=== PATIENT | female | born 2000 | race Caucasian/White ===

== ENCOUNTER 2021-05-13 16:38 | Emergency (ER) | payer MEDICAID ==
[~2021-05-13] VITALS: Ht 165.1 cm; Wt 118.0 kg
--- NOTE | 2021-05-13 17:11 | PHYS DOC ---
Past Medical History Past Surgical History: No Surgical History General Adult EDM: Chief Complaint: , pelvic pain HPI: HPI: Patient is a 20 year old female who present to ER for evaluation of lower pelvic pain, described as cramping in nature. Patient says she is , her last menstrual period was on 03/09/2021. This is her second , she had a miscarriage before. Patient denies any vaginal bleeding. Patient did not have any care yet. Patient denies any fever, no nausea vomiting Review of Systems: Review of Systems: Constitutional: Denies fever or chills. [] Eyes: Denies change in visual acuity. [] HENT: Denies nasal congestion or sore throat. [] Respiratory: Denies cough or shortness of breath. [] Cardiovascular: Denies chest pain or edema. [] GI: Denies abdominal pain, nausea, vomiting, bloody stools or diarrhea. [] : Denies dysuria. Positive for pelvic pain, no vaginal bleeding or discharge Musculoskeletal: Denies back pain or joint pain. [] Integument: Denies rash. [] Neurologic: Denies headache, focal weakness or sensory changes. [] Endocrine: Denies polyuria or polydipsia. [] Lymphatic: Denies swollen glands. [] Psychiatric: Denies depression or anxiety. [] Heart Score: C/O Chest Pain: N/A Risk Factors: Risk Factors: DM, Current or recent (<one month) smoker, HTN, HLP, family history of CAD, obesity. Risk Scores: Score 0 - 3: 2.5% MACE over next 6 weeks - Discharge Home Score 4 - 6: 20.3% MACE over next 6 weeks - Admit for Clinical Observation Score 7 - 10: 72.7% MACE over next 6 weeks - Early Invasive Strategies Physical Exam: PE: Constitutional: Well developed, well nourished, no acute distress, non-toxic appearance. [] HENT: Normocephalic, atraumatic, bilateral external ears normal, oropharynx moist, no oral exudates, nose normal. [] Eyes: PERRLA, EOMI, conjunctiva normal, no discharge. [] Neck: Normal range of motion, no tenderness, supple, no stridor. [] Cardiovascular:Heart rate regular rhythm, no murmur [] Lungs & Thorax: Bilateral breath sounds clear to auscultation [] Abdomen: Bowel sounds normal, soft, suprapubic tender to palpate, no masses, no pulsatile masses. [] Skin: Warm, dry, no erythema, no rash. [] Back: No tenderness, no CVA tenderness. [] Extremities: No tenderness, no cyanosis, no clubbing, ROM intact, no edema. [] Neurologic: Alert and oriented X 3, normal motor function, normal sensory function, no focal deficits noted. [] Psychologic: Affect normal, judgement normal, mood normal. [] Current Patient Data: Labs: Laboratory Tests Test 05/13/21 16:16 05/13/21 16:51 05/13/21 17:50 Urine Collection Type Unknown Urine Color Yellow Urine Clarity Turbid Urine pH 6.0 Urine Specific [place] >=1.030 Urine Protein Negative mg/dL Urine Glucose (UA) Negative mg/dL Urine Ketones (Stick) Negative mg/dL Urine Blood Negative Urine Nitrite Negative Urine Bilirubin Negative Urine Urobilinogen Dipstick 1.0 mg/dL Urine Leukocyte Esterase Trace Urine RBC 0 /HPF Urine WBC 1-4 /HPF Urine Squamous Epithelial Cells Few /LPF Urine Amorphous Sediment Present /HPF Urine Bacteria Few /HPF Urine Mucus Slight /LPF Bedside Urine HCG, Qualitative Hcg positive White Blood Count 9.1 x10^3/uL Red Blood Count 4.12 x10^6/uL Hemoglobin 12.4 g/dL Hematocrit 35.3 % Mean Corpuscular Volume 86 fL Mean Corpuscular Hemoglobin 30 pg Mean Corpuscular Hemoglobin Concent 35 g/dL Red Cell Distribution Width 13.5 % Platelet Count 320 x10^3/uL Neutrophils (%) (Auto) 72 % Lymphocytes (%) (Auto) 18 % Monocytes (%) (Auto) 9 % Eosinophils (%) (Auto) 1 % Basophils (%) (Auto) 1 % Neutrophils # (Auto) 6.6 x10^3/uL Lymphocytes # (Auto) 1.6 x10^3/uL Monocytes # (Auto) 0.8 x10^3/uL Eosinophils # (Auto) 0.1 x10^3/uL Basophils # (Auto) 0.1 x10^3/uL Sodium Level 137 mmol/L Potassium Level 3.7 mmol/L Chloride Level 103 mmol/L Carbon Dioxide Level 23 mmol/L Anion Gap 11 Blood Urea Nitrogen 8 mg/dL Creatinine 0.8 mg/dL Estimated GFR (Cockcroft-Gault) 91.4 BUN/Creatinine Ratio 10 Glucose Level 90 mg/dL Calcium Level 8.5 mg/dL Total Bilirubin 0.2 mg/dL Aspartate Amino Transf (AST/SGOT) 12 U/L Alanine Aminotransferase (ALT/SGPT) 14 U/L Alkaline Phosphatase 72 U/L Total Protein 6.7 g/dL Albumin 3.0 g/dL Albumin/Globulin Ratio 0.8 Laboratory Tests Test 05/13/21 16:51 POC Urine HCG, Qualitative Hcg positive (Negative) Vital Signs: Vital Signs Date Time Temp Pulse Resp B/P (MAP) Pulse Ox O2 Delivery O2 Flow Rate FiO2 05/13/21 16:50 97.7 97 14 157/92 (113) 100 Room Air 97.7 EKG: EKG: [] Radiology/Procedures: Radiology/Procedures: [facility] [address] [place] [address] IMAGING REPORT Signed PATIENT: LUKAS LUCAS NACCOUNT: [id number] : 2000 LOCATION: ER AGE: 20 SEX: F EXAM STATUS: REG ER ORD. PHYSICIAN: VIVIANA AYERS DO REASON: pelvic pain, , LMP 03/09/21 PROCEDURE: OB TRANSVAG INDICATION: Reason: pelvic pain, , LMP 03/09/21 / Spl. Instructions: / History: COMPARISON: CT from March 13, 2021 TECHNIQUE: Grayscale and color ultrasound images uterus and adnexa. Transvagina l images are obtained. FINDINGS: Uterus is 110 x 73 x 70 mm. Left ovaries 31 x 30 x 24 mm. Intrauterine gestational sac is identified with a pole with a heart beat of 178. Right ovary is obscured. Too early in to adequately assess placenta. Amniotic fluid unremarkable crown-rump length is 23 mm. Cyst at the left ovary measuring 24 x 18 mm with vascular flow seen to the ovary. IMPRESSION: * Intrauterine is identified with estimated gestational age of 9 weeks and 0 days with positive heartbeat. Recommend routine anomaly screening at 18-22 weeks. * Left ovarian cyst Electronically signed by: Hamzah Baltazar MD (05/13/2021 6:16 PM) [id number] DICTATED and SIGNED BY: HAMZAH BALTAZAR MD DATE: 05/13/21 [id number] 0 Course & Med Decision Making: Course & Med Decision Making Patient isPertinent Labs and Imaging studies reviewed. (See chart for details) Patient is a 20-year-old female who present to ER for evaluation lower abdominal cramping. Patient is , pelvic ultrasound show 9-week IUP, she is in no acute distress, she had no fever, no nausea vomiting. Patient had no vaginal bleeding. It is suspected that patient had pain due to round ligament. Dragon Disclaimer: Dragon Disclaimer: This electronic medical record was generated, in whole or in part, using a voice recognition dictation system. Departure Departure Impression: Primary Impression: Abdominal pain during in first trimester Disposition: 01 HOME / SELF CARE / HOMELESS Condition: STABLE Referrals: VICTOR M MACIAS MD Follow up with this GAME TESTER DOCTOR FOR OUTPATIENT CARE. Patient Instructions: Abdominal Pain During Additional Instructions: Thank you for visiting our Emergency Department. We appreciate you trusting us with your care. If any additional problems come up don't hesitate to return to visit us. Please follow up with your primary care provider so they can plan additional care if needed and know about the problem that you had. If symptoms worsen come back to the Emergency Department. Any concerning symptoms that start such as chest pain, shortness of air, weakness or numbness on one side of the body, running high fevers or any other concerning symptoms return to the ER. VIVIANA AYERS DO May 13, 2021 17:11
[2021-05-13 17:18] LABS: BILIRUBIN,URINE NEGATIVE (NEG); CLARITY,URINE TURBID; COLOR,URINE YELLOW; NITRITE,URINE NEGATIVE (NEG); PROTEIN,URINE NEGATIVE (NEG-TRACE)
[2021-05-13 17:33] LABS: AMORPHOUS SEDIMENT,UR PRESENT /HPF; BACTERIA,URINE FEW /HPF (0-FEW)
[2021-05-13 17:35] LABS: RBC,URINE 0 /HPF (0-2)
[2021-05-13 17:59] LABS: BASO # 0.1 x10^3/uL (0.0-0.2); BASO % 1 % (0-3); EOS # 0.1 x10^3/uL (0.0-0.7); EOS % 1 % (0-3); HEMATOCRIT 35.3 % (36.0-47.0); HEMOGLOBIN 12.4 g/dL (12.0-15.5); LYMPH # 1.6 x10^3/uL (1.0-4.8); LYMPH % 18 % (24-48); MEAN CORPUSCULAR HEMOGLOBIN 30 pg (25-35); MEAN CORPUSCULAR HGB CONC 35 g/dL (31-37); MEAN CORPUSCULAR VOLUME 86 fL (79-100); MONO # 0.8 x10^3/uL (0.0-1.1); MONO % 9 % (0-9); NEUT # 6.6 x10^3/uL (1.8-7.7); NEUT % 72 % (31-73); PLATELET COUNT 320 x10^3/uL (140-400); RED BLOOD COUNT 4.12 x10^6/uL (3.50-5.40); RED CELL DISTRIBUTION WIDTH 13.5 % (11.5-14.5); WHITE BLOOD COUNT 9.1 x10^3/uL (4.0-11.0)
[2021-05-13 18:06] LABS: CALCIUM 8.5 mg/dL (8.5-10.1); CREATININE 0.8 mg/dL (0.6-1.0); GFR 91.4; POTASSIUM 3.7 mmol/L (3.5-5.1)
[2021-05-13 18:12] LABS: ALBUMIN/GLOBULIN RATIO 0.8 (1.0-1.7); TOTAL BILIRUBIN 0.2 mg/dL (0.2-1.0); TOTAL PROTEIN 6.7 g/dL (6.4-8.2)
--- NOTE | 2021-05-13 18:18 | RAD ---
INDICATION: Reason: pelvic pain, , LMP 03/09/21 / . Instructions: / History: COMPARISON: CT from March 13, 2021 TECHNIQUE: Grayscale and color ultrasound images uterus and adnexa. Transvaginal images are obtained . FINDINGS: Uterus is 110 x 73 x 70 mm. Left ovaries 31 x 30 x 24 mm. Intrauterine gestational sac is identified with a pole with a heart beat of 178. Right ovary is obscured. Too early in to adequately assess placenta. Amniotic fluid unremarkable crown-rump length is 23 mm. Cyst at the left ovary measuring 24 x 18 mm with vascular flow seen to the ovary. IMPRESSION: * Intrauterine is identified with estimated gestational age of 9 weeks and 0 days with po sitive heartbeat. Recommend routine anomaly screening at 18-22 weeks. * Left ovarian cyst Electronically signed by: Wayne Chauahn MD (05/13/2021 6:16 PM) [id number]
[2021-05-13 18:28] VITALS: BP 134/75
== END 2021-05-13 18:28 | disposition home or self-care (01) ==
LOC: ER 16:38
DX: O26.891 Other specified pregnancy related conditions, first trimester (principal); R10.2 Pelvic and perineal pain; Z3A.09 9 weeks gestation of pregnancy
CPT/HCPCS: 36415; 76817; 80053; 81001; 81025; 84702; 85025; 87086; 99284

== ENCOUNTER 2021-05-29 09:00 | Emergency (ER) | payer MEDICAID ==
[~2021-05-29] VITALS: Ht 165.1 cm; Wt 118.8 kg
--- NOTE | 2021-05-29 10:38 | PHYS DOC ---
Past Medical History Past Surgical History: No Surgical History (DUSTY OHARA APRN) Smoking Status: Former Smoker Alcohol Use: None (DUSTY OHARA APRN) General Adult EDM: Chief Complaint: VAGINAL BLEEDING HPI: HPI: Patient is a 20-year-old female that presents today after having some lower abdominal cramping with scant amount of vaginal bleeding. Patient states she woke up this morning and had some blood on her underwear and then wiped and had some more blood on the tissue. She has not had any vaginal bleeding since that time. Patient denies sexual intercourse in the last 24 hours. Patient does state that she has had some vaginal discharge since this morning as well. Patient states this is her third she has had 1 live and 1 miscarriage. Patient has not had any care she is following up with a puzzle assembler in [facility]. Patient was previously here on May 13, 2021 had a pelvic ultrasound that showed 9-week intrauterine at that time. Patient does state that she is O-. (DUSTY OHARA APRN) Review of Systems: Review of Systems: Constitutional: Denies fever or chills. [] Eyes: Denies change in visual acuity. [] HENT: Denies nasal congestion or sore throat. [] Respiratory: Denies cough or shortness of breath. [] Cardiovascular: Denies chest pain or edema. [] GI: lower abdominal cramps, vaginal discharge and bleeding : Denies dysuria. [] Musculoskeletal: Denies back pain or joint pain. [] Integument: Denies rash. [] Neurologic: Denies headache, focal weakness or sensory changes. [] Endocrine: Denies polyuria or polydipsia. [] Lymphatic: Denies swollen glands. [] Psychiatric: Denies depression or anxiety. [] (DUSTY OHARA DISPLAY MECHANIC) Heart Score: C/O Chest Pain: N/A Risk Factors: Risk Factors: DM, Current or recent (<one month) smoker, HTN, HLP, family history of CAD, obesity. Risk Scores: Score 0 - 3: 2.5% MACE over next 6 weeks - Discharge Home Score 4 - 6: 20.3% MACE over next 6 weeks - Admit for Clinical Observation Score 7 - 10: 72.7% MACE over next 6 weeks - Early Invasive Strategies (DUSTY OHARA APRN) Current Medications: vitamins (DUSTY OHARA APRN) Allergies: Allergies: Allergies Coded Allergies Type Severity Reaction Last Updated Verified No Known Drug Allergies 05/29/21 No (DUSTY OHARA APRN) Physical Exam: PE: Constitutional: Well developed, well nourished, no acute distress, non-toxic appearance. [] HENT: Normocephalic, atraumatic, bilateral external ears normal, oropharynx moist, no oral exudates, nose normal. [] Eyes: PERRLA, EOMI, conjunctiva normal, no discharge. [] Neck: Normal range of motion, no tenderness, supple, no stridor. [] Cardiovascular:Heart rate regular rhythm, no murmur [] Lungs & Thorax: Bilateral breath sounds clear to auscultation [] Abdomen: abdomen soft and no tenderness with palpation. Skin: Warm, dry, no erythema, no rash. [] Back: No tenderness, no CVA tenderness. [] Extremities: No tenderness, no cyanosis, no clubbing, ROM intact, no edema. [] Neurologic: Alert and oriented X 3, normal motor function, normal sensory function, no focal deficits noted. [] Psychologic: Affect normal, judgement normal, mood normal. [] (DUSTY OHARA APRN) Current Patient Data: Labs: Laboratory Tests Test 05/29/21 10:31 05/29/21 10:32 Bedside Urine HCG, Qualitative Hcg positive Urine Collection Type Unknown Urine Color Yellow Urine Clarity Cloudy Urine pH 8.0 Urine Specific [place] 1.020 Urine Protein Negative mg/dL Urine Glucose (UA) Negative mg/dL Urine Ketones (Stick) Negative mg/dL Urine Blood Negative Urine Nitrite Negative Urine Bilirubin Negative Urine Urobilinogen Dipstick 1.0 mg/dL Urine Leukocyte Esterase Large Urine RBC Field obscured /HPF Urine WBC Tntc /HPF Urine Squamous Epithelial Cells Many /LPF Urine Amorphous Sediment Present /HPF Urine Bacteria Moderate /HPF Vital Signs: Vital Signs Date Time Temp Pulse Resp B/P (MAP) Pulse Ox O2 Delivery O2 Flow Rate FiO2 05/29/21 10:15 98.2 83 18 144/79 (100) 100 Room Air 98.2 (DUSTY OHARA APRN) EKG: EKG: [] (DUSTY OHARA APRN) Radiology/Procedures: Radiology/Procedures: Pelvic Exam: External exam is normal and without rash, No CMT, OS is closed, vaginal discharge noted, uterus NTTP, No adnexal masses or tenderness noted[] REASON: with vaginal bleeding PROCEDURE: OB TRANSVAG US OB TRANSVAGINAL DATE: 05/29/2021 10:35 AM INDICATION: with vaginal bleeding. LMP 03/09/2021. COMPARISON: None. TECHNIQUE: Transabdominal ultrasonography of the pelvis was performed. Color Doppler and duplex were utilized as appropriate. FINDINGS: The uterus measures 11 x 10 x 8.3 cm. There is living intrauterine gestation with heart rate of 165 beats per minute. There is small yolk sac present. Gestational sac is normal in morphology. No perigestational fluid. [place]-rump length measurement of 4.84 cm corresponds with estimated ultrasound gestational age of 11 weeks and 4 days. EDC by ultrasound 12/14/2021. There is no free pelvic fluid. The right ovary is not visualized The left ovary measures 3.1 x 2.9 x 2.4 cm. No evidence of left ovarian torsion. There is normal blood flow to the left ovary by color Doppler with arterial and venous waveforms detected. IMPRESSION: 1. Single living intrauterine gestation. [place]-rump length corresponds with estimated ultrasound gestational age of 11 weeks and 4 days. 2. Normal left ovary. Right ovary not visualized. Electronically signed by: Og Kinsey MD (05/29/2021 12:05 PM) [facility] (DUSTY OHARA APRN) Course & Med Decision Making: Course & Med Decision Making Pertinent Labs and Imaging studies reviewed. (See chart for details) 1215 patient reexamined no vaginal bleeding noted, patient does report she was at a clinic in the area 3 days ago and diagnosed with STI and has not gotten her prescription filled patient encouraged at this time to get the prescription filled and be treated for STI. Lab test and ultrasound results reviewed with patient patient encouraged to follow-up with her puzzle assembler and/or Dr. Montes this week by phone for follow-up. Due to patient's Rh- status patient was given a dose of RhoGam here in the department. patient agreed with plan and understands the need for her antibiotic for her STI. Patient verbalized understanding to return for increased vaginal bleeding or passing of tissue. [] (DUSTY OHARA APRN) Course & Med Decision Making I have reviewed the documentation for this chart. The patient has evidence of a UTI on UA, but no abx was sent. The chart makes note of an STI as well, but no documentation of what specific STI. I called the patient and sent an Rx for Cefdinir to her local pharmacy for coverage of UTI. She denies any history of STI testing recently and states she has been in a monogamous relationship for 5 years. She believes she was di agnosed with a UTI, but has been unable to last picker her abx. At this time she has not been treated for GC/Chlamydia, PCR pending. (ABHIJIT KOWALSKI MD) Dragon Disclaimer: Dragon Disclaimer: This electronic medical record was generated, in whole or in part, using a voice recognition dictation system. (DUSTY OHARA APRN) Departure Departure Impression: Primary Impression: at early stage Disposition: HOME / SELF CARE / HOMELESS Condition: STABLE Referrals: NO PCP (PCP) LUCIUS MONTES MD Patient Instructions: - First Trimester, [id number], Vaginal Bleeding During , First Trimester Additional Instructions: Get antibiotic prescription filled as previously prescribed Tylenol only as needed for pain Avoid sexual intercourse or placing anything in the vagina until followed up with your puzzle assembler or Dr. Montes Follow-up this week with your puzzle assembler or Dr. Lucius Montes VOICE STUDIES DIRECTOR for further care. Scripts Cefdinir (CEFDINIR) 300 Mg Capsule 1 CAP PO BID for 7 Days, #14 CAP 0 Refills Prov: ABHIJIT KOWALSKI MD 05/30/21 DUSTY OHARA APRN May 29, 2021 10:38 ABHIJIT KOWALSKI MD May 30, 2021 18:23
[2021-05-29 10:47] LABS: BILIRUBIN,URINE NEGATIVE (NEG); CLARITY,URINE CLOUDY; COLOR,URINE YELLOW; NITRITE,URINE NEGATIVE (NEG); PROTEIN,URINE NEGATIVE (NEG-TRACE)
[2021-05-29 10:59] LABS: WBC,URINE TNTC /HPF (0-4)
[2021-05-29 11:00] LABS: AMORPHOUS SEDIMENT,UR PRESENT /HPF; BACTERIA,URINE MODERATE /HPF (0-FEW); RBC,URINE FIELD OBSCURED /HPF (0-2)
--- NOTE | 2021-05-29 12:07 | RAD ---
US OB TRANSVAGINAL DATE: 05/29/2021 10:35 AM INDICATION: with vaginal bleeding. LMP 03/09/2021. COMPARISON: None. TECHNIQUE: Transabdominal ultrasonography of the pelvis was performed. Color Doppler and duplex were utilized as appropriate. FINDINGS: The uterus measures 11 x 10 x 8.3 cm. There is living intrauterine gestation with heart rate of 165 beats per minute. There is small yolk s ac present. Gestational sac is normal in morphology. No perigestational fluid. [place]-rump length measurement of 4.84 cm corresponds with estimated ultrasound gestational age of 11 weeks and 4 days. EDC by ultrasound 12/14/2021. There is no free pelvic fluid. The right ovary is not visualized The left ovary measures 3.1 x 2.9 x 2.4 cm. No evidence of left ova kiara torsion. There is normal blood flow to the left ovary by color Doppler with arterial and venous waveforms detected. IMPRESSION: 1. Single living intrauterine gestation. [place]-rump length corresponds with estimated ultrasound gest ational age of 11 weeks and 4 days. 2. Normal left ovary. Right ovary not visualized. Electronically signed by: Og Kinsey MD (05/29/2021 12:05 PM) [facility]
[2021-05-29 12:11] VITALS: BP 132/67
[2021-05-30] MEDS ORDERED: CEFD300C PO (18:18)
[2021-05-31 18:13] LABS: GC PROBE Negative (Negative)
== END 2021-05-29 13:04 | disposition home or self-care (01) ==
LOC: ER 09:00
DX: O46.91 Antepartum hemorrhage, unspecified, first trimester (principal); R10.30 Lower abdominal pain, unspecified; Z87.891 Personal history of nicotine dependence; Z3A.11 11 weeks gestation of pregnancy
CPT/HCPCS: 36415; 36430; 76817; 81001; 81025; 86850; 86900; 86901; 87086; 87491; 87591; 99285; J2790